=== PATIENT | female | born 1980 | race Caucasian/White ===

== ENCOUNTER 2019-07-22 12:52 | Emergency (ER) | payer MEDICAID ==
[~2019-07-22] VITALS: Ht 165.1 cm; Wt 54.5 kg
[2019-07-22 13:08] VITALS: BP 120/64
[2019-07-22] MEDS ORDERED: hydrOXYzine 25 MG tablet PO ONE (14:55)
--- NOTE | 2019-07-22 15:00 | NUR ---
CALLED [facility] SPOKE WITH LEONARD BUNDY SHE WILL KNOW AND CALL PT BACK AT [phone] BY [phone] IF THERE IS AN OPENING TODAY AT [phone]
--- NOTE | 2019-07-22 15:31 | NUR ---
LEONARD WITH [facility] CALLED BACK AND STATES PT CAN COME TO CHECK IN TODAY AT 1630 AT [address] [facility], # [phone] GAVE ADDRESS AND PHONE NUMBER TO PT ALONG WITH CHECK IN TIME, BRITTANI CRUZ NOTIFIED OF UPDATE
[2019-07-22] MEDS ORDERED: HYDR-3686 PO (15:35)
== END 2019-07-22 15:49 | disposition home or self-care (01) ==
LOC: ER 12:53
DX: F41.9 Anxiety disorder, unspecified (principal); Z79.899 Other long term (current) drug therapy
CPT/HCPCS: 99283; Q0177; Z7610